=== PATIENT | female | born 1965 | race Caucasian/White ===

== ENCOUNTER 2017-06-18 01:40 | Emergency (ER) | payer BC ==
[~2017-06-18] VITALS: Ht 167.6 cm; Wt 61.2 kg
--- NOTE | 2017-06-18 02:00 | NUR ---
52 YO FEMALE [place] ESQU[place]A FOR N/V. PATIENT STATES SHE HAD A WEED EDIBLE EARLIER TODAY. PATIENT AMUBULATRED TO ER BED, SKIN WARM AND DRY, RESP EVEN AND UNLABORED. 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 AWAITING ORDERS FROM PROVIDER, WILL CONTINUE TO MONITOR
[2017-06-18] MEDS ORDERED: ONDANSETRON HCL/PF 4 MG/2 ML VIAL ONE (02:21)
[2017-06-18] MEDS ORDERED: LORAZEPAM INJ 2 MG/ML VIAL ONE (02:22)
[2017-06-18] MEDS ORDERED: ONDANSETRON HCL/PF 4 MG/2 ML VIAL IV ONE (02:30)
[2017-06-18] MEDS ORDERED: IV NS 0.9% 1,000 ML BAG IV ONE (02:30)
[2017-06-18] MEDS ORDERED: LORAZEPAM INJ 2 MG/ML VIAL IV ONE (02:30)
--- NOTE | 2017-06-18 03:23 | NUR ---
Pt states that she is feeling better. Requesting to be discharged home. Pt ok to be discharged per dr Platt. IV removed. Catheter intact and site benign. Pressure and 4x4 applied to site. No bleeding noted.Patient discharged to home in stable condition. Written and verbal after care instructions given. Patient verbalizes understanding of instruction.Patient is awake and alert to self, day, and place. pt ambulatory with a steady gait
[2017-06-18 03:34] VITALS: BP 103/72
== END 2017-06-18 03:35 | disposition home or self-care (01) ==
LOC: ER 01:42
DX: R11.2 Nausea with vomiting, unspecified (principal); E86.0 Dehydration; F12.90 Cannabis use, unspecified, uncomplicated; F10.10 Alcohol abuse, uncomplicated; Z88.8 Allergy status to other drugs, medicaments and biological substances
CPT/HCPCS: 96361; 96374; 96375; 99284; A4606; J2060; J2405; Z7610